=== PATIENT | male | born 1965 | race Caucasian/White ===

== ENCOUNTER 2019-06-14 06:50 | Emergency (ER) | payer BC ==
--- NOTE | 2019-06-14 07:52 | EDM.PDOC ---
ED HPI GENERAL MEDICAL PROBLEM - General Chief Complaint: Upper Extremity Injury/Pain Stated Complaint: ARM INJURY Time Seen by Provider: 06/14/19 07:51 - History of Present Illness INITIAL COMMENTS - FREE TEXT/NARRATIVE: 53-year-old male presents the emergency room with right wrist pain. This was quite severe this morning he rates the pain at a 10 out of 10. Patient denies any recent injuries. However the patient uses his hands quite a bit at work. Patient has a significant past medical history of hypertension he takes multiple medications for this he does not believe he took them last night he has not taken this morning's medication as well. The patient had to worm picker a friend at the airport in [place] and after this they went to eat salty [place] food. The patient may have had a gouty attack in 1 of his great toes but then he was told it was not gout. The patient has not had any fevers or chills he has developed some redness over the wrist and proximal to it along with some swelling. The patient has tenderness if he tries to move his wrist. And flexion and extension of his digits is quite uncomfortable. The patient has had a hard time getting in to see a local provider here but he will continue to work on this. The patient is currently taking Lasix 40 mg daily amlodipine 5 mg daily diltiazem extended release 180 mg daily and metoprolol 100 mg twice daily the patient had a right nephrectomy many years ago for a possible tumor if this turned out to be benign and the patient takes levothyroxine 300 mcg daily he had a total thyroidectomy done many years ago. Left Wrist Pain Score (Numeric/FACES): 10 - Related Data Allergies Allergy/AdvReac Type Severity Reaction Status Date / Time No Known Allergies Allergy Verified 06/14/19 07:12 Home Meds: Home Meds Cephalexin [Keflex] 500 mg PO Q6H #28 capsule 06/14/19 [Rx] Levothyroxine [Synthroid] 06/14/19 [History] Metoprolol Tartrate 06/14/19 [History] predniSONE [Prednisone] 40 mg PO Q24H #10 tablet 06/14/19 [Rx] Past Medical History Cardiovascular History: Reports: High Cholesterol, Hypertension Other Genitourinary History: right kidney removed - Past Surgical History Endocrine Surgical History: Reports: Thyroidectomy Social & Family History - Tobacco Use Smoking Status *Q: Current Every Day Smoker Years of Tobacco use: 25 Packs/Tins Daily: 0.5 Review of Systems - Review of Systems Review Of Systems: See Below Constitutional: Reports: No Symptoms Eyes: Reports: No Symptoms Respiratory: Reports: No Symptoms Cardiovascular: Reports: No Symptoms GI/Abdominal: Reports: No Symptoms Musculoskeletal: Reports: Other (See HPI) ED EXAM, GENERAL - Physical Exam Exam: See Below Head: Atraumatic, Normocephalic Neck: Normal Inspection, Supple, Non-Tender, Full Range of Motion Respiratory/Chest: No Respiratory Distress, Lungs Clear, Normal Breath Sounds Cardiovascular: Regular Rate, Rhythm, No Edema, No Murmur Extremities: Other (Patient is right forearm shows intact supination and pronation but this does cause difficult discomfort in the wrist flexion and extension of the wrist is extremely uncomfortable. Motion of the digits causes some discomfort in this area as well. Neurovascular status appears to be okay he has some swelling around this area and some redness and warmth. He rates his pain at a 10 and it is worse with palpation) Skin Exam: Ecchymosis (Right wrist with associated swelling the dorsum of the hand is involved. No obvious injury to the skin) Course - Vital Signs Last Recorded V/S: Last Vital Signs Temp 36.4 C 06/14/19 07:12 Pulse 94 06/14/19 07:12 Resp 16 06/14/19 07:12 BP 185/101 H 06/14/19 08:43 Pulse Ox 100 06/14/19 07:12 - Orders/Labs/Meds Orders: Active Orders 24 hr Category Date Time Status cephALEXin [Keflex] Med 06/14/19 09:58 Once 500 mg PO ONETIME ONE predniSONE Med 06/14/19 09:58 Once 60 mg PO ONETIME ONE Medication Orders Cephalexin (Keflex) 500 mg PO ONETIME ONE Stop: 06/14/19 09:59 Prednisone (Prednisone) 60 mg PO ONETIME ONE Stop: 06/14/19 09:59 Labs: Laboratory Tests 06/14/19 06/14/19 06/14/19 Range/Units 08:14 08:55 08:55 WBC 11.20 H (4.23-9.07) K/mm3 RBC 5.68 (4.63-6.08) M/mm3 Hgb 17.5 (13.7-17.5) gm/dl Hct 50.9 (40.1-51.0) % MCV 89.6 (79.0-92.2) fl MCH 30.8 (25.7-32.2) pg MCHC 34.4 (32.2-35.5) g/dl RDW Std Deviation 43.2 (35.1-43.9) fL Plt Count 203 (163-337) K/mm3 MPV 10.5 (9.4-12.3) fl Neut % (Auto) 69.5 H (34.0-67.9) % Lymph % (Auto) 18.8 L (21.8-53.1) % [place] % (Auto) 8.8 (5.3-12.2) % Eos % (Auto) 2.4 (0.8-7.0) Baso % (Auto) 0.2 (0.1-1.2) % Neut # (Auto) 7.78 H (1.78-5.38) K/mm3 Lymph # (Auto) 2.11 (1.32-3.57) K/mm3 [place] # (Auto) 0.99 H (0.30-0.82) K/mm3 Eos # (Auto) 0.27 (0.04-0.54) K/mm3 Baso # (Auto) 0.02 (0.01-0.08) K/mm3 Manual Slide Review Normal smear ESR 13 (0-15) mm/hr Sodium 143 (136-145) mEq/L Potassium 3.8 (3.5-5.1) mEq/L Chloride 107 (98-107) mEq/L Carbon Dioxide 24 (21-32) mEq/L Anion Gap 15.8 H (5-15) BUN 29 H (7-18) mg/dL Creatinine 1.3 (0.7-1.3) mg/dL Est Cr Clr Drug Dosing TNP Estimated GFR (MDRD) 58 (>60) mL/min BUN/Creatinine Ratio 22.3 H (14-18) Glucose 90 (74-106) mg/dL Uric Acid 8.1 H (3.5-7.2) mg/dL Calcium 8.8 (8.5-10.1) mg/dL C-Reactive Protein 0.3 (<1.0) mg/dL Meds: Medications Generic Name Dose Route Start Last Admin Trade Name Wiley PRN Reason Stop Dose Admin Cephalexin 500 mg 06/14/19 09:58 Keflex PO 06/14/19 09:59 ONETIME ONE Prednisone 60 mg 06/14/19 09:58 Prednisone PO 06/14/19 09:59 ONETIME ONE - Re-Assessments/Exams Free Text/Narrative Re-Assessment/Exam: 06/14/19 09:59 Reviewed labs. His creatinine is 1.3 in his BUN is elevated he did have a nephrectomy on the right side. C-reactive protein is normal. Uric acid is 8.1 I am suspicious he has acute gouty attack however I cannot exclude cellulitis at this point he will be started on prednisone and Keflex I will have him follow -up in the clinic this next week Departure - Departure Time of Disposition: 10:01 Disposition: Home, Self-Care 01 Clinical Impression: Swelling of joint, wrist, right, Pain in right wrist, Hyperuricemia - Discharge Information Prescriptions: Cephalexin [Keflex] 500 mg PO Q6H #28 capsule predniSONE [Prednisone] 40 mg PO Q24H #10 tablet Instructions: Gout Referrals: PCP,None [Primary Care Provider] - Forms: ED Department Discharge, ED Return to Work/School Form Additional Instructions: To the emergency room with any questions problems or worsening symptoms. It is a little unclear to me exactly what is going on I suspect it is a gouty flare involving your wrist, however I cannot exclude a cellulitis which is a superficial skin infection. You were placed on antibiotics if this is the case. I am starting you on prednisone which works very well for gout. You can use Tylenol in addition for the discomfort do not use ibuprofen Naprosyn or any medication such as that. Call the hospital clinic today for an appointment next week tell them you were seen in the emergency room for [phone] Sepsis Event Note - Evaluation Sepsis Screening Result: No Definite Risk - Focused Exam Vital Signs: Vital Signs Temp Pulse Resp BP Pulse Ox 06/14/19 08:43 185/101 H 06/14/19 07:12 36.4 C 94 16 179/126 H 100 Date Exam was Performed: 06/14/19 Time Exam was Performed: 09:59 - My Orders Last 24 Hours: My Active Orders 06/14/19 09:58 cephALEXin [Keflex] 500 mg PO ONETIME ONE predniSONE 60 mg PO ONETIME ONE - Assessment/Plan Last 24 Hours: My Active Orders 06/14/19 09:58 cephALEXin [Keflex] 500 mg PO ONETIME ONE predniSONE 60 mg PO ONETIME ONE
--- NOTE | 2019-06-14 09:16 | CR ---
Right forearm: Two views of the right forearm were obtained. Scattered soft tissue calcifications are seen. These are believed to be dystrophic and also felt to be of no acute significance. Well-corticated bony density is noted off the lateral elbow compatible with old injury. Joint space narrowing is noted off the distal navicular bone. No acute fracture or dislocation is seen. Impression: 1. Findings as noted above. 2. Nothing acute is identified. Diagnostic code #2 This report was dictated in [place] Standard Time
--- NOTE | 2019-06-14 09:16 | CR ---
Right hand: Four views of the right hand were obtained. Comparison: No previous right hand exam. Slight degenerative change is scattered within the DIP and PIP joints. MCP joints appear preserved. Mild joint space narrowing is noted off the distal navicular bone. No acute fracture, dislocation or other bony abnormality is identified. Impression: 1. Mild degenerative change as noted above. 2. Nothing acute is appreciated. Diagnostic code #2 This report was dictated in [place] Standard Time
[2019-06-14] MEDS ORDERED: predniSONE 20 MG Tab PO ONE (09:58)
[2019-06-14] MEDS ORDERED: Cephalexin 500 MG Cap PO ONE (09:58)
== END 2019-06-14 10:56 | disposition home or self-care (01) ==
LOC: JD.ED 06:50
DX: M79.89 Other specified soft tissue disorders (principal); E79.0 Hyperuricemia without signs of inflammatory arthritis and tophaceous disease; F17.210 Nicotine dependence, cigarettes, uncomplicated; I10 Essential (primary) hypertension; Z79.899 Other long term (current) drug therapy
CPT/HCPCS: 36415; 73090; 73130; 80048; 84550; 85025; 85652; 86140; 99283; A9270